=== PATIENT | female | born 1945 | race Caucasian/White ===

== ENCOUNTER 2017-01-14 22:43 | Emergency (ER) | payer MEDICARE, OTHER ==
--- NOTE | 2017-01-14 23:44 | EDM.PDOC ---
ED HPI GENERAL MEDICAL PROBLEM - General Chief Complaint: General Stated Complaint: Abdominal pain Time Seen by Provider: 01/14/17 22:45 Source of Information: Reports: Patient History Limitations: Reports: No Limitations - History of Present Illness INITIAL COMMENTS - FREE TEXT/NARRATIVE: Patient comes to ER for evaluation of right sided abdominal pain. This has been present since yesterday morning and has gradually worsened in intensity. No nausea/emesis. No abnormal bowel movements. No history of similar pain. Patient has had gallbladder and appendix removed. Breathing makes pain worse, as does some twisting motions. Food/water make no difference. Does not hurt to sit up from lying down position. No radiation of pain. No change in pain when using bathroom. Denies chest pain/SOB/respiratory changes. No symptoms of UTI. 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 She does not think that she has kept up with drinking water and also has been eating a variety of other [facility] food that may not have agreed with her. Does have history of prior NM. This does not feel like when she had her NM. Also has history of previous kidney stones, GERD, diverticulosis - Related Data Allergies Allergy/AdvReac Type Severity Reaction Status Date / Time hydrocodone Allergy Nausea and Verified 01/14/17 22:46 Vomiting latex Allergy Rash Verified 01/14/17 22:46 Latex, Natural Rubber Allergy Cannot Verified 01/14/17 22:46 Remember Sulfa (Sulfonamide Allergy Cannot Verified 01/14/17 22:46 Antibiotics) Remember CARDIOLYTE STRESS TEST DYE Allergy Cannot Uncoded 01/14/17 22:46 INFUSION Remember Home Meds: Home Meds Aspirin [Bob Chewable Aspirin] 81 mg PO BEDTIME 10/07/14 [History] Multivitamin [Multivitamins] 1 tab PO DAILY 10/07/14 [History] Omeprazole 20 mg PO BIDAC 10/09/14 [History] Albuterol/Ipratropium [DuoNeb 3.0-0.5 MG/3 ML] 3 ml NEB BID #60 neb 10/10/14 [Rx ] Acetaminophen [Acetaminophen Extra Strength] 1 tab PO DAILY PRN 09/23/16 [ History] Albuterol [Ventolin HFA] 2 puff INH Q4H PRN 09/23/16 [History] Albuterol/Ipratropium [DuoNeb 3.0-0.5 MG/3 ML] 3 ml NEB Q6H PRN 09/23/16 [ History] Amitriptyline [Elavil] 10 mg PO BEDTIME 09/23/16 [History] Ca Carbonate/Vitamin D3/Vit K [Calcium + D Soft Chewable Tab] 1 tab PO DAILY 10/05 [History] Cetirizine [ZyrTEC] 10 mg PO DAILY 09/23/16 [History] Cholecalciferol (Vitamin D3) [Vitamin D3] 1 cap PO DAILY 09/23/16 [History] Gluc 2KCl/Chondr/Idris Hy/Hy Ac [Glucosamine & Chondroitin Cap] 1 each PO DAILY 09/23/16 [History] Halobetasol Propionate [Ultravate] 1 applic TP BID PRN 09/23/16 [History] Lysine 500 mg PO DAILY 09/23/16 [History] Montelukast [Singulair] 10 mg PO DAILY 09/23/16 [History] [place]-3/DHA/Epa/Fish Oil [[place] 3 500 Softgel] 1,000 mg PO BID 09/23/16 [History ] Simvastatin [Zocor] 20 mg PO BEDTIME 09/23/16 [History] Tiotropium [Spiriva HandiHaler] 1 cap INH DAILY 09/23/16 [History] Ubidecarenone [Coenzyme Q10] 100 mg PO DAILY 09/23/16 [History] Vitamin B Complex [B Complex] 1 tab PO DAILY 09/23/16 [History] buPROPion [Wellbutrin XL] 300 mg PO DAILY 09/23/16 [History] Fluticasone/Salmeterol [Advair Diskus 500-50] 1 inh PO BID 09/26/16 [History] ALPRAZolam [Alprazolam] 0.25 mg PO DAILY PRN 01/14/17 [History] Ibuprofen 400 mg PO DAILY PRN 01/14/17 [History] Amoxicillin/Potassium Clav [Augmentin 875-125 Tablet] 1 each PO Q12HR #8 tablet 01/15/17 [Rx] Past Medical History HEENT History: Reports: None Cardiovascular History: Reports: CAD, NM, Stents Other Cardiovascular History: 2004 Respiratory History: Reports: COPD, Pneumonia, Recurrent, Sleep Apnea Gastrointestinal History: Reports: GERD, Hiatal Hernia Other Gastrointestinal History: hernia Genitourinary History: Reports: Renal Calculus, Retention, Urinary Musculoskeletal History: Reports: Back Pain, Chronic Neurological History: Reports: None Psychiatric History: Reports: Anxiety, Depression, Panic Attack Hematologic History: Reports: None Immunologic History: Reports: None Oncologic (Cancer) History: Reports: None Dermatologic History: Reports: Eczema - Infectious Disease History Infectious Disease History: Reports: Chicken Pox, Influenza, Measles, Mumps, Shingles - Past Surgical History Cardiovascular Surgical History: Reports: Coronary Artery Stent Neurological Surgical History: Reports: Other (See Below) Social & Family History - Family History Family Medical History: Noncontributory - Tobacco Use Smoking Status *Q: Former Smoker Years of Tobacco use: 40 Packs/Tins Daily: 1 Used Tobacco, but Quit: Yes Month Tobacco Last Used: 2003 Second Hand Smoke Exposure: No - Caffeine Use Caffeine Use: Reports: Coffee, Soda, Tea - Alcohol Use Days Per Week of Alcohol Use: 0 - Recreational Drug Use Recreational Drug Use: No - Living Situation & Occupation Living situation: Reports: ED ROS GENERAL - Review of Systems Review Of Systems: See Below Constitutional: Denies: Fever, Chills, Weakness, Night Sweats, Diaphoresis, Decreased Appetite, Weight Gain HEENT: Reports: No Symptoms Respiratory: Reports: No Symptoms. Denies: Shortness of Breath, Wheezing, Pleuritic Chest Pain, Cough, Sputum, Hemoptysis Cardiovascular: Denies: Chest Pain, Dyspnea on Exertion, Edema, Lightheadedness , Orthopnea, Palpitations, Syncope GI/Abdominal: Reports: Abdominal Pain. Denies: Anorexia, Black Stool, Bloody Stool, Constipation, Diarrhea, Decreased Appetite, Difficulty Swallowing, Distension, Nausea, Vomiting : Reports: No Symptoms Musculoskeletal: Reports: No Symptoms Skin: Reports: No Symptoms Neurological: Reports: No Symptoms Psychiatric: Reports: Anxiety Hematologic/Lymphatic: Reports: No Symptoms ED EXAM, GENERAL - Physical Exam Exam: See Below Exam Limited By: No Limitations General Appearance: Alert, WD/WN, Anxious Eye Exam: Bilateral Eye: EOMI, PERRL Ears: Normal External Exam, Normal Canal, Hearing Grossly Normal, Normal TMs Nose: Normal Inspection, Normal Mucosa Throat/Mouth: Normal Inspection, Normal Lips, Normal Voice, No Airway Compromise Head: Atraumatic, Normocephalic Neck: Normal Inspection, Supple, Non-Tender, Full Range of Motion. No: Lymphadenopathy (L), Lymphadenopathy (R) Respiratory/Chest: No Respiratory Distress, Lungs Clear, Normal Breath Sounds, No Accessory Muscle Use, Chest Non-Tender Cardiovascular: Normal Peripheral Pulses, Regular Rate, Rhythm, No Murmur Peripheral Pulses: 2+: Radial (L), Radial (R), Dorsalis Pedis (L), Dorsalis Pedis (R) GI/Abdominal: Normal Bowel Sounds, Soft, No Distention, No Mass, Tender (right mid abdomen, right upper abdomen). No: Guarding, Rigid, Rebound (Female) Exam: Deferred Rectal (Female) Exam: Deferred Back Exam: Normal Inspection Extremities: Normal Inspection, Normal Range of Motion, Non-Tender, Normal Capillary Refill, Pedal Edema (mild bilateral LE edema) Neurological: Alert, Oriented, CN II-XII Intact, Normal Cognition, Normal Gait, Normal Reflexes, No Motor/Sensory Deficits Psychiatric: Anxious Skin Exam: Warm, Dry, Intact EKG INTERPRETATION EKG Date: 01/15/17 Time: 23:38 Rhythm: Other (Sinus tach) Rate (Beats/Min): 108 [place]: Normal P-Wave: Present QRS: Normal ST-T: Other (No obvious depression or elevation noted.) QT: Normal Comparison: NA - No Prior EKG Course - Orders/Labs/Meds Orders: Active Orders 24 hr Category Date Time Status EKG Documentation Completion [RC] ASDIRECTED Care 01/14/17 23:06 Active Abdomen Series w Chest 1V [CR] Stat Exams 01/14/17 23:00 Taken AMYLASE [CHEM] Stat Lab 01/14/17 23:20 Results CK W CKMB [CHEM] Stat Lab 01/15/17 01:16 Ordered CKMB [CHEM] Stat Lab 01/14/17 23:20 Results COMPREHENSIVE METABOLIC PN,CMP [CHEM] Stat Lab 01/14/17 23:20 Results LIPASE [CHEM] Stat Lab 01/14/17 23:20 Results TROPONIN I [CHEM] Stat Lab 01/14/17 23:20 Results Labs: Laboratory Tests 01/14/17 01/14/17 01/14/17 Range/Units 23:09 23:20 23:20 WBC 15.3 H (4.0-10.2) K/uL RBC 3.95 (3.77-5.09) M/uL Hgb 12.6 (11.7-15.5) g/dL Hct 37.1 (34.0-46.0) % MCV 93.9 (84.0-98.0) fL MCH 31.9 (28.2-33.3) pg MCHC 34.0 (31.7-36.0) g/dL RDW 13.4 (11.2-14.1) % Plt Count 254 (150-350) K/uL Neut % (Auto) 79.0 (45.0-80.0) % Lymph % (Auto) 11.2 (10.0-50.0) % [place] % (Auto) 7.7 (2.0-14.0) % Eos % (Auto) 1.9 (0.0-5.0) % Baso % (Auto) 0.2 (0.0-2.0) % Neut # (Auto) 12.10 H (1.40-7.00) K/uL Lymph # (Auto) 1.71 (0.50-3.50) K/uL [place] # (Auto) 1.18 H (0.00-1.00) K/uL Eos # (Auto) 0.29 (0.00-0.50) K/uL Baso # (Auto) 0.03 (0.00-0.20) K/uL Sodium 140 (136-145) mmol/L Potassium 3.8 (3.5-5.1) mmol/L Chloride 106 (98-107) mmol/L Carbon Dioxide 24.8 (21.0-32.0) mmol/L BUN 15 (7-18) mg/dL Creatinine 0.73 (0.51-1.17) mg/dL Est Cr Clr Drug Dosing TNP Estimated GFR (MDRD) > 60 mL/min Glucose 100 (74-106) mg/dL Calcium 8.3 L (8.5-10.1) mg/dL Total Bilirubin 0.6 (0.2-1.0) mg/dL AST 42 H (15-37) U/L ALT 40 (12-78) U/L Alkaline Phosphatase 125 H (46-116) IU/L CK-MB (CK-2) 4.40 H* (0.00-3.60) ng/mL Troponin I 0.001 (0.000-0.056) ng/mL Total Protein 7.0 (6.4-8.2) g/dL Albumin 3.7 (3.4-5.0) g/dL Amylase 34 (25-115) U/L Lipase 135 (73-393) U/L Specimen Type Urinvoid Urine Color Yellow Urine Appearance Clear Urine pH 5.5 (5.0-9.0) Ur Specific [place] <= 1.005 (1.005-1.030) Urine Protein Negative (NEGATIVE) mg/dL Urine Glucose (UA) Negative (NEGATIVE) mg/dL Urine Ketones Trace H (NEGATIVE) mg/dL Urine Occult Blood Small H (NEGATIVE) Urine Nitrite Negative (NEGATIVE) Urine Bilirubin Negative (NEGATIVE) Urine Urobilinogen 0.2 (0.2-1.0) E.U./dL Ur Leukocyte Esterase Trace H (NEGATIVE) Urine RBC 0-5 /HPF Urine WBC 0-5 /HPF Ur Epithelial Cells Occasional /LPF Urine Bacteria Occasional (NONE TO FEW) /HPF Meds: Medications Discontinued Medications Generic Name Dose Route Start Last Admin Trade Name Freq PRN Reason Stop Dose Admin Sodium Chloride 1,000 mls @ 999 mls/hr 01/14/17 23:47 01/15/17 00:17 Normal Saline IV 01/15/17 00:47 999 mls/hr .BOLUS ONE Administration Ketorolac Tromethamine 30 mg 01/15/17 00:17 01/15/17 00:22 Toradol IVPUSH 01/15/17 00:18 30 mg ONETIME ONE Administration - Radiology Interpretation Free Text/Narrative:: generalized increase in air noted on abdominal film. Increased stool noted on right. No air/fluid levels. Chest xray did not show pneumo or pneumonia. Opacity noted right lower lung, uncertain significance. No prior chest films at our facility for comparison. No cardiomegaly noted. - Re-Assessments/Exams Free Text/Narrative Re-Assessment/Exam: 01/15/17 01:26 Elevated WBC. Elevated CK along with CK-MB. Troponin normal. Suspect elevated CK is due to increased physical activity and being on her feet for the last 4 days. UA unremarkable. No complaints of chest pain during stay. No acute ST elevation/depression noted on EKG. Temp under 100 at time of discharge. Patient feeling better after Toradol and IV fluids. Suspect GI cause for complaint. Given persistent discomfort in same area of abdomen, history of diverticuli, low grade temp elevation, and elevated WBC, important to consider diverticulitis. Discussed possibility of needed CT of abdomen with patient. She would rather try antibiotics and try to avoid CT at this time. Cannot rule out possibility of viral cause to pain. Plan at this time is to send her home with Augmentin and PRN Tramadol. Discussed clear liquid diet for next 2-3 days. Recommend follow up with primary provider early next week. She is it follow up earlier if she has worsening problems for further evaluation including possible CT evaluation. Departure - Departure Time of Disposition: 01:38 Disposition: Home, Self-Care 01 Condition: Good Clinical Impression: Abdominal pain Qualifiers: Abdominal location: upper abdomen, unspecified Qualified Code(s): R10.10 - Upper abdominal pain, unspecified - Discharge Information Prescriptions: Amoxicillin/Potassium Clav [Augmentin 875-125 Tablet] 1 each PO Q12HR #8 tablet Instructions: Diverticulitis, [id number], Clear Liquid Diet, [id number], Low-Fiber Diet Forms: ED Department Discharge Additional Instructions: Start antibiotics as prescribed. At this time we are treating you for a possible bacterial infection. You may still have another reason for the pain. Because of this, follow up if you are not having any improvement within a few days, or if you have sudden worsening. Additional evaluation may be needed, including CT of abdomen as we discussed. Activity as tolerated. Keep hydrated. OK to take Tylenol for pain. Do not recommend ibuprofen or motrin or Aleve while you are having these problems. Clear liquid diet for the next 2-3 days. After that, switch to a low fiber diet for one week. Follow up with your primary provider next week fore recheck. - My Orders Last 24 Hours: My Active Orders 01/14/17 23:00 Abdomen Series w Chest 1V [CR] Stat 01/14/17 23:06 EKG Documentation Completion [RC] ASDIRECTED 01/14/17 23:20 AMYLASE [CHEM] Stat CKMB [CHEM] Stat COMPREHENSIVE METABOLIC PN,CMP [CHEM] Stat LIPASE [CHEM] Stat TROPONIN I [CHEM] Stat 01/15/17 01:16 CK W CKMB [CHEM] Stat - Assessment/Plan Last 24 Hours: My Active Orders 01/14/17 23:00 Abdomen Series w Chest 1V [CR] Stat 01/14/17 23:06 EKG Documentation Completion [RC] ASDIRECTED 01/14/17 23:20 AMYLASE [CHEM] Stat CKMB [CHEM] Stat COMPREHENSIVE METABOLIC PN,CMP [CHEM] Stat LIPASE [CHEM] Stat TROPONIN I [CHEM] Stat 01/15/17 01:16 CK W CKMB [CHEM] Stat
[2017-01-14] MEDS ORDERED: Sodium Chloride 0.9% 1,000 ML IV ONE (23:47)
[2017-01-14 23:57] LABS: CHLORIDE,CL 106 mmol/L (98-107); SODIUM,NA 140 mmol/L (136-145)
[2017-01-15] MEDS ORDERED: Ketorolac 30 MG/ML SDV IVPUSH ONE (00:17)
[2017-01-15 03:44] VITALS: BP 116/46
== END 2017-01-15 02:05 | disposition home or self-care (01) ==
LOC: LL.ED 22:43
DX: R10.10 Upper abdominal pain, unspecified (principal); I25.10 Atherosclerotic heart disease of native coronary artery without angina pectoris; I25.2 Old myocardial infarction; K21.9 Gastro-esophageal reflux disease without esophagitis; F41.9 Anxiety disorder, unspecified; F32.9 Major depressive disorder, single episode, unspecified; Z88.5 Allergy status to narcotic agent; Z91.040 Latex allergy status; Z87.01 Personal history of pneumonia (recurrent); Z95.5 Presence of coronary angioplasty implant and graft; Z79.82 Long term (current) use of aspirin; Z88.2 Allergy status to sulfonamides; Z87.891 Personal history of nicotine dependence
CPT/HCPCS: 36415; 74022; 80053; 81001; 82150; 82550; 82553; 83690; 84484; 85025; 93005; 96361; 96374; 99284; J1885; J7030

== ENCOUNTER 2024-07-20 19:14 | Emergency (ER) | payer MEDICARE, OTHER ==
[2024-07-20 20:11] VITALS: BP 114/71
[2024-07-20 20:27] VITALS: PULSE 81
[2024-07-20] MEDS ORDERED: Ondansetron 4 MG/2 ML SDV IVPUSH ONE (20:30)
[2024-07-20] MEDS: Morphine 2 MG/ML SYRINGE IVPUSH ONE (20:37)
[2024-07-20] MEDS: Diazepam 5 MG Tab PO ONE (20:37)
[2024-07-20] MEDS: Sodium Chloride 0.9% 10 ML Syringe FLUSH PRN (20:37)
== END 2024-07-20 21:15 ==
LOC: LL.ED 19:14
DX: S72.142A Displaced intertrochanteric fracture of left femur, initial encounter for closed fracture (principal); I25.10 Atherosclerotic heart disease of native coronary artery without angina pectoris; I11.0 Hypertensive heart disease with heart failure; I50.9 Heart failure, unspecified; I25.2 Old myocardial infarction; E78.00 Pure hypercholesterolemia, unspecified; J44.89 Other specified chronic obstructive pulmonary disease; K21.9 Gastro-esophageal reflux disease without esophagitis; Z86.16 Personal history of COVID-19; Z90.49 Acquired absence of other specified parts of digestive tract; Z88.5 Allergy status to narcotic agent; Z88.2 Allergy status to sulfonamides; Z88.8 Allergy status to other drugs, medicaments and biological substances; Z91.040 Latex allergy status; Z79.82 Long term (current) use of aspirin; Z79.51 Long term (current) use of inhaled steroids; Z79.899 Other long term (current) drug therapy; W19.XXXA Unspecified fall, initial encounter
CPT/HCPCS: 93005; 94761; 96374; 99285-25; A9270-GY; J2270

== ENCOUNTER 2024-12-24 22:15 | Inpatient (IN) | payer MEDICARE, OTHER ==
[2024-12-24] MEDS: methylPREDNISolone Sodium Succinate 125 MG/2 ML SDV IVPUSH ONE (22:48)
[2024-12-24 22:50] LABS: BASOPHILS ABSOLUTE AUTO 0.01 K/uL (0.00-0.20); BASOPHILS PERCENT AUTO 0.1 % (0.0-2.0); EOSINOPHILS ABSOLUTE AUTO 0.00 K/uL (0.00-0.50); EOSINOPHILS PERCENT AUTO 0.0 % (0.0-5.0); IMMATURE GRAN ABSOLUTE AUTO 0.02 10^3/uL (0.00-0.04); IMMATURE GRAN PERCENT AUTO 0.2 % (0.0-0.4); LYMPHOCYTES ABSOLUTE AUTO 0.75 K/uL (0.50-3.50); LYMPHOCYTES PERCENT AUTO 5.6 % (10.0-50.0); MONOCYTES ABSOLUTE AUTO 0.96 K/uL (0.00-1.00); MONOCYTES PERCENT AUTO 7.2 % (2.0-14.0); NEUTROPHILS ABSOLUTE AUTO 11.59 K/uL (1.40-7.00); NEUTROPHILS PERCENT AUTO 86.9 % (45.0-80.0); PLATELET COUNT,PLT 200 K/uL (150-350); RED BLOOD CELL COUNT 4.11 M/uL (3.77-5.09); RED CELL DISTRIBUTION WIDTH 13.7 % (11.2-14.1); WHITE BLOOD CELL COUNT,WBC 13.3 K/uL (4.0-10.2)
[2024-12-24] MEDS: Sodium Chloride 0.9% 10 ML Syringe FLUSH PRN (22:50)
[2024-12-24 23:18] LABS: ALANINE AMINOTRANSFERASE,ALT 80 U/L (12-78); ASPARTATE AMNIOTRANSFERASE,AST 86 U/L (15-37); BILIRUBIN TOTAL 0.5 mg/dL (0.2-1.0); BLOOD UREA NITROGEN,BUN 12 mg/dL (7-18); CARBON DIOXIDE,CO2 26.7 mmol/L (21.0-32.0); CHLORIDE,CL 99 mmol/L (98-107); CREATININE 0.54 mg/dL (0.51-1.17); GLUCOSE RANDOM 145 mg/dL (70-99); POTASSIUM,K 3.1 mmol/L (3.5-5.1); PROTEIN TOTAL,TP 6.8 g/dL (6.4-8.2); SODIUM,NA 133 mmol/L (136-145)
[2024-12-24 23:20] LABS: O2 DELIVERY DEVICE NASAL CANNULA
[2024-12-24 23:21] LABS: BASE EXCESS VENOUS 3 mmol/L ((-2)-3); BICARBONATE,VENOUS 27 mmol/L (23-28); O2 SATURATION VENOUS 87 %; PCO2 VENOUS 41 mmHG (41-51); PH,VENOUS 7.43 (7.31-7.41); PO2 VENOUS 51 mmHG
[2024-12-24 23:22] LABS: LACTIC ACID 0.8 mmol/L (0.4-2.0)
[2024-12-24 23:22] LABS: ESTIMATED GFR 94 mL/min (>=60)
[2024-12-24 23:24] LABS: PRO B-TYPE NATRIUR PEPT,BNPPRO 255.0 pg/mL (0-125)
[2024-12-24] MEDS: Lactated Ringers 1,000 ML IV SCH (23:27)
[2024-12-25] MEDS ORDERED: Polyvinyl Alcohol 1.4% Ophth Soln 15 ML Bottle EYEBOTH PRN (00:07)
[2024-12-25] MEDS ORDERED: LIDOCAINE 4% TOP PRN (00:07)
[2024-12-25] MEDS ORDERED: Simethicone 125 MG Tab.Chew PO PRN (00:07)
[2024-12-25] MEDS ORDERED: Codeine/guaiFENesin 10-100 MG/5 ML Syrup 5 ML Cup PO PRN (00:07)
[2024-12-25] MEDS ORDERED: HALOBETASOL TOP PRN (00:07)
[2024-12-25] MEDS: Potassium Chloride 20 MEQ Tab.ER PO ONE ×2 (01:21→08:09)
[2024-12-25] MEDS: Lactated Ringers 1,000 ML IV SCH (01:41)
[2024-12-25] MEDS: methylPREDNISolone Sodium Succinate 125 MG/2 ML SDV IVPUSH ONE (05:38)
[2024-12-25 07:35] LABS: BASOPHILS ABSOLUTE AUTO 0.00 K/uL (0.00-0.20); BASOPHILS PERCENT AUTO 0.0 % (0.0-2.0); EOSINOPHILS ABSOLUTE AUTO 0.00 K/uL (0.00-0.50); EOSINOPHILS PERCENT AUTO 0.0 % (0.0-5.0); IMMATURE GRAN ABSOLUTE AUTO 0.12 10^3/uL (0.00-0.04); IMMATURE GRAN PERCENT AUTO 0.8 % (0.0-0.4); LYMPHOCYTES ABSOLUTE AUTO 0.41 K/uL (0.50-3.50); LYMPHOCYTES PERCENT AUTO 2.7 % (10.0-50.0); MONOCYTES ABSOLUTE AUTO 0.49 K/uL (0.00-1.00); MONOCYTES PERCENT AUTO 3.2 % (2.0-14.0); NEUTROPHILS ABSOLUTE AUTO 14.40 K/uL (1.40-7.00); NEUTROPHILS PERCENT AUTO 93.3 % (45.0-80.0); PLATELET COUNT,PLT 173 K/uL (150-350); RED BLOOD CELL COUNT 3.49 M/uL (3.77-5.09); RED CELL DISTRIBUTION WIDTH 13.9 % (11.2-14.1); WHITE BLOOD CELL COUNT,WBC 15.4 K/uL (4.0-10.2)
[2024-12-25 07:48] LABS: ALANINE AMINOTRANSFERASE,ALT 97.0 U/L (12-78); ASPARTATE AMNIOTRANSFERASE,AST 92.0 U/L (15-37); BILIRUBIN TOTAL 0.4 mg/dL (0.2-1.0); BLOOD UREA NITROGEN,BUN 10.0 mg/dL (7-18); CARBON DIOXIDE,CO2 21.9 mmol/L (21.0-32.0); CHLORIDE,CL 99.0 mmol/L (98-107); CREATININE 0.41 mg/dL (0.51-1.17); EST CRCL DRUG DOSING (CG) 96.08 mL/min; GLUCOSE RANDOM 154.0 mg/dL (70-99); POTASSIUM,K 3.3 mmol/L (3.5-5.1); PROTEIN TOTAL,TP 5.8 g/dL (6.4-8.2); SODIUM,NA 128.0 mmol/L (136-145)
[2024-12-25 07:56] LABS: LACTIC ACID 0.7 mmol/L (0.4-2.0)
[2024-12-25] MEDS ORDERED: methylPREDNISolone Sodium Succinate 125 MG/2 ML SDV IVPUSH ONE (08:00)
[2024-12-25 08:02] LABS: ESTIMATED GFR 100.0 mL/min (>=60)
[2024-12-25] MEDS: Formoterol/Mometasone 200-5 MCG 8.8 GM Inhaler INH SCH (08:04)
[2024-12-25] MEDS: Tiotropium Bromide 4 GM Inhalation Spray (2.5mcg/1 dose; 10 doses) INH SCH (08:04)
[2024-12-25] MEDS: Acetaminophen 650 MG Tab.ER PO SCH (08:08)
[2024-12-25] MEDS: Nystatin Susp 100,000 Unit/ML 5 ML UD Cup PO SCH (08:08)
[2024-12-25] MEDS: Calcium Carbonate/Vitamin D3 625 MG-125 Unit Tab PO SCH (08:09)
[2024-12-25] MEDS: Cholecalciferol (Vitamin D3) 25 MCG Tab PO SCH (08:10)
[2024-12-25] MEDS: Fish Oil/Omega-3 Fatty Acids 1 Gm Cap PO SCH (08:10)
[2024-12-25] MEDS: Lactobacillus Rhamnosus GG (Probiotic) Cap PO SCH (08:11)
[2024-12-25] MEDS: buPROPion 150 MG Tab.ER PO SCH (08:11)
[2024-12-25] MEDS: Albuterol 0.083% 2.5 MG/3 ML Neb Soln NEB PRN (08:19)
[2024-12-25] MEDS: ROFLUMILAST 500 MCG PO SCH (11:09)
[2024-12-25] MEDS: methylPREDNISolone Sodium Succinate 125 MG/2 ML SDV IV SCH (11:10)
[2024-12-25] MEDS: LYSINE 500 MG PO SCH (11:27)
[2024-12-25] MEDS: Menthol 10%/Methyl Salicylate 15% 85 GM Tube TOP PRN (21:22)
[2024-12-26] MEDS ORDERED: Menthol 10%/Methyl Salicylate 15% 85 GM Tube TOP SCH (08:00)
[2024-12-26 08:11] LABS: BASOPHILS ABSOLUTE AUTO 0.00 K/uL (0.00-0.20); BASOPHILS PERCENT AUTO 0.0 % (0.0-2.0); EOSINOPHILS ABSOLUTE AUTO 0.00 K/uL (0.00-0.50); EOSINOPHILS PERCENT AUTO 0.0 % (0.0-5.0); IMMATURE GRAN ABSOLUTE AUTO 0.09 10^3/uL (0.00-0.04); IMMATURE GRAN PERCENT AUTO 0.5 % (0.0-0.4); LYMPHOCYTES ABSOLUTE AUTO 0.71 K/uL (0.50-3.50); LYMPHOCYTES PERCENT AUTO 3.8 % (10.0-50.0); MONOCYTES ABSOLUTE AUTO 0.33 K/uL (0.00-1.00); MONOCYTES PERCENT AUTO 1.8 % (2.0-14.0); NEUTROPHILS ABSOLUTE AUTO 17.38 K/uL (1.40-7.00); NEUTROPHILS PERCENT AUTO 93.9 % (45.0-80.0); PLATELET COUNT,PLT 195 K/uL (150-350); RED BLOOD CELL COUNT 3.80 M/uL (3.77-5.09); RED CELL DISTRIBUTION WIDTH 14.0 % (11.2-14.1); WHITE BLOOD CELL COUNT,WBC 18.5 K/uL (4.0-10.2)
[2024-12-26 08:33] LABS: ALANINE AMINOTRANSFERASE,ALT 87.0 U/L (12-78); ASPARTATE AMNIOTRANSFERASE,AST 51.0 U/L (15-37); BILIRUBIN TOTAL 0.3 mg/dL (0.2-1.0); BLOOD UREA NITROGEN,BUN 12.0 mg/dL (7-18); CARBON DIOXIDE,CO2 25.3 mmol/L (21.0-32.0); CHLORIDE,CL 102.0 mmol/L (98-107); CREATININE 0.63 mg/dL (0.51-1.17); EST CRCL DRUG DOSING (CG) 62.53 mL/min; GLUCOSE RANDOM 171.0 mg/dL (70-99); POTASSIUM,K 4.3 mmol/L (3.5-5.1); PROTEIN TOTAL,TP 6.5 g/dL (6.4-8.2); SODIUM,NA 135.0 mmol/L (136-145)
[2024-12-26 08:43] LABS: ESTIMATED GFR 90.0 mL/min (>=60)
[2024-12-26] MEDS ORDERED: Ondansetron 4 MG Tab.DIS PO PRN (09:40)
[2024-12-26] MEDS: Fluticasone NASAL Spray 16 GM Bottle NASBOTH SCH (10:19)
[2024-12-27 07:35] LABS: BASOPHILS ABSOLUTE AUTO 0.01 K/uL (0.00-0.20); BASOPHILS PERCENT AUTO 0.1 % (0.0-2.0); EOSINOPHILS ABSOLUTE AUTO 0.00 K/uL (0.00-0.50); EOSINOPHILS PERCENT AUTO 0.0 % (0.0-5.0); IMMATURE GRAN ABSOLUTE AUTO 0.04 10^3/uL (0.00-0.04); IMMATURE GRAN PERCENT AUTO 0.3 % (0.0-0.4); LYMPHOCYTES ABSOLUTE AUTO 0.94 K/uL (0.50-3.50); LYMPHOCYTES PERCENT AUTO 6.9 % (10.0-50.0); MONOCYTES ABSOLUTE AUTO 0.67 K/uL (0.00-1.00); MONOCYTES PERCENT AUTO 4.9 % (2.0-14.0); NEUTROPHILS ABSOLUTE AUTO 11.93 K/uL (1.40-7.00); NEUTROPHILS PERCENT AUTO 87.8 % (45.0-80.0); PLATELET COUNT,PLT 213 K/uL (150-350); RED BLOOD CELL COUNT 3.85 M/uL (3.77-5.09); RED CELL DISTRIBUTION WIDTH 13.9 % (11.2-14.1); WHITE BLOOD CELL COUNT,WBC 13.6 K/uL (4.0-10.2)
[2024-12-27 08:04] LABS: ALANINE AMINOTRANSFERASE,ALT 69.0 U/L (12-78); ASPARTATE AMNIOTRANSFERASE,AST 31.0 U/L (15-37); BILIRUBIN TOTAL 0.4 mg/dL (0.2-1.0); BLOOD UREA NITROGEN,BUN 9.0 mg/dL (7-18); CARBON DIOXIDE,CO2 27.0 mmol/L (21.0-32.0); CHLORIDE,CL 103.0 mmol/L (98-107); CREATININE 0.54 mg/dL (0.51-1.17); EST CRCL DRUG DOSING (CG) 72.95 mL/min; GLUCOSE RANDOM 100.0 mg/dL (70-99); POTASSIUM,K 3.6 mmol/L (3.5-5.1); PROTEIN TOTAL,TP 6.5 g/dL (6.4-8.2); SODIUM,NA 136.0 mmol/L (136-145)
[2024-12-27 08:56] LABS: ESTIMATED GFR 94.0 mL/min (>=60)
[2024-12-27 13:54] VITALS: BP 122/64; PULSE 100
== END 2024-12-27 13:58 | DRG 193 ==
LOC: LL.ED 22:15 → LL.MS 23:40
PROVIDERS: ADMIT Physician Assistant; ATTEND Physician Assistant
DX: J18.9 Pneumonia, unspecified organism (principal); J96.21 Acute and chronic respiratory failure with hypoxia; J96.02 Acute respiratory failure with hypercapnia; J44.0 Chronic obstructive pulmonary disease with (acute) lower respiratory infection; J44.1 Chronic obstructive pulmonary disease with (acute) exacerbation; I50.9 Heart failure, unspecified; E87.1 Hypo-osmolality and hyponatremia; F33.9 Major depressive disorder, recurrent, unspecified; I50.32 Chronic diastolic (congestive) heart failure; Z66 Do not resuscitate; I25.10 Atherosclerotic heart disease of native coronary artery without angina pectoris; E78.00 Pure hypercholesterolemia, unspecified; M81.0 Age-related osteoporosis without current pathological fracture; G47.33 Obstructive sleep apnea (adult) (pediatric); Z88.5 Allergy status to narcotic agent; Z88.6 Allergy status to analgesic agent; H54.7 Unspecified visual loss; I11.0 Hypertensive heart disease with heart failure; K21.9 Gastro-esophageal reflux disease without esophagitis; M19.90 Unspecified osteoarthritis, unspecified site; J43.9 Emphysema, unspecified; I72.0 Aneurysm of carotid artery; R91.1 Solitary pulmonary nodule; E87.6 Hypokalemia; E83.42 Hypomagnesemia; F41.1 Generalized anxiety disorder; R91.8 Other nonspecific abnormal finding of lung field; Z95.5 Presence of coronary angioplasty implant and graft; I25.2 Old myocardial infarction; Z87.891 Personal history of nicotine dependence; Z88.8 Allergy status to other drugs, medicaments and biological substances; Z88.2 Allergy status to sulfonamides; Z91.040 Latex allergy status; Z79.82 Long term (current) use of aspirin; Z79.51 Long term (current) use of inhaled steroids; Z79.899 Other long term (current) drug therapy; Z79.52 Long term (current) use of systemic steroids; Z79.2 Long term (current) use of antibiotics; Z95.1 Presence of aortocoronary bypass graft; Z86.16 Personal history of COVID-19; Z98.49 Cataract extraction status, unspecified eye; Z98.890 Other specified postprocedural states; Z90.49 Acquired absence of other specified parts of digestive tract; Z98.51 Tubal ligation status
CPT/HCPCS: 36415; 71045; 71046; 80053; 82803; 83605; 83735; 83880; 84484; 85025; 85379; 86140; 87040; 93005; 93010; 94640; 96374; 96375; 97161-GP; 97165-GO; 97530-GO; 97530-GP; 97535-GO; 99223; 99232; 99233; 99239; 99285-25; A9270-GY; C1889; J0696; J1650; J2919; J7030; J7120; J7512